=== PATIENT | male | born 1965 | race Caucasian/White ===

== ENCOUNTER 2025-01-16 16:49 | Emergency (ER) | payer BC ==
[~2025-01-16] VITALS: Ht 165.1 cm; Wt 81.6 kg
[2025-01-16] MEDS ORDERED: Acetaminophen/Oxycodone 5 MG/325 MG TABLET PO ONE (17:25)
[2025-01-16] MEDS ORDERED: Ondansetron Hydrochloride 4 MG TAB PO ONE (17:25)
[2025-01-16] MEDS ORDERED: METHOCARBAMOL750 M1 PO (18:49)
[2025-01-16] MEDS ORDERED: PERCOCET 5-3251 EACH PO (18:49)
== END 2025-01-16 18:55 | disposition home or self-care (01) ==
LOC: ED 16:49
DX: S46.021A Laceration of muscle(s) and tendon(s) of the rotator cuff of right shoulder, initial encounter (principal); X58.XXXA Exposure to other specified factors, initial encounter; Y93.89 Activity, other specified; Y92.89 Other specified places as the place of occurrence of the external cause; Y99.8 Other external cause status